=== PATIENT | male | born 2000 | race Two or more races ===

== ENCOUNTER 2019-05-04 19:37 | Emergency (ER) | payer SELFPAY ==
[2019-05-04] MEDS ORDERED: Lidocaine 1% with EPINEPHrine 1:100,000 20 ML MDV INJECT ONE (20:33)
[2019-05-04] MEDS ORDERED: Diphtheria,Pertussis(Acell),Tetanus Vaccine 0.5 ML SDV IM ONE (20:33)
[2019-05-04] MEDS ORDERED: Bupivacaine 0.5% 10 ML SDV INJECT ONE (20:33)
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
== END 2019-05-04 23:06 | disposition home or self-care (01) ==
LOC: JD.ED 19:37
DX: S81.011A Laceration without foreign body, right knee, initial encounter (principal); S50.311A Abrasion of right elbow, initial encounter; S80.812A Abrasion, left lower leg, initial encounter; S80.811A Abrasion, right lower leg, initial encounter; Z23 Encounter for immunization; V86.56XA Driver of dirt bike or motor/cross bike injured in nontraffic accident, initial encounter
CPT/HCPCS: 12002; 90471; 90715; 99283; J3490; 99282

== ENCOUNTER 2019-05-11 11:13 | Emergency (ER) | payer SELFPAY ==
--- NOTE | 2019-05-11 13:00 | EDM.PDOC ---
ED HPI GENERAL MEDICAL PROBLEM - General Stated Complaint: REMOVE STITCHES Time Seen by Provider: 05/11/19 12:26 Source of Information: Reports: Patient History Limitations: Reports: No Limitations - History of Present Illness INITIAL COMMENTS - FREE TEXT/NARRATIVE: Patient is a 18-year-old male who presents to the ED to have sutures removed from his right knee. Patient fell causing a laceration. Laceration was closed here in the ED approximate 7 days ago. He was instructed to return back to ED to have these removed. No pain associated to the site. No signs of infection. He offers no additional complaints. - Related Data Allergies Allergy/AdvReac Type Severity Reaction Status Date / Time No Known Allergies Allergy Verified 05/11/19 13:17 Home Meds: Home Meds . [No Known Home Meds] 05/04/19 [History] Past Medical History - Past Health History Medical/Surgical History: Denies Medical/Surgical History Social & Family History - Caffeine Use Caffeine Use: Reports: Coffee, Soda - Living Situation & Occupation Living situation: Reports: Single, Alone Occupation: Employed ([employer]) ED ROS GENERAL - Review of Systems Review Of Systems: ROS reveals no pertinent complaints other than HPI. ED EXAM, SKIN/RASH Exam: See Below Exam Limited By: No Limitations General Appearance: Alert, WD/WN, No Apparent Distress Ears: Hearing Grossly Normal Nose: Normal Inspection Throat/Mouth: Normal Voice, No Airway Compromise Head: Atraumatic, Normocephalic Neck: Normal Inspection, Supple Respiratory/Chest: No Respiratory Distress, No Accessory Muscle Use Cardiovascular: Normal Peripheral Pulses, Regular Rate, Rhythm Peripheral Pulses: 2+: Radial (R) Extremities: Normal Range of Motion, Non-Tender, Other (Approximately 2 inch laceration to the right knee with well approximated wound edges and suture in place. The suture is a running suture. Scab present. No signs of infection including: Increased redness, swelling, or warmth. No drainage noted.) Neurological: Alert, Oriented, CN II-XII Intact, Normal Cognition, No Motor/ Sensory Deficits Psychiatric: Normal Affect, Normal Mood Skin: Warm, Dry, Normal Color Course - Vital Signs Last Recorded V/S: Last Vital Signs Temp 98.6 F 05/11/19 13:13 Pulse 78 05/11/19 13:13 Resp 16 05/11/19 13:13 BP 122/80 05/11/19 13:13 Pulse Ox 100 05/11/19 13:13 - Re-Assessments/Exams Free Text/Narrative Re-Assessment/Exam: Patient has a approximate 2 inch laceration to the right knee with a running suture in place. Scab present with no redness, swelling, or drainage present. 7 days post injury. I believe additional 3 days would be appropriate for suture removal. He'll return back to the ED for further exam to have the sutures removed. 05/11/19 14:29 Prior to discharge patient's sutures were removed by nursing staff accidentally. The laceration remained intact with no separation. Steri- Strips were reapplied. Verbal instructions provided to patient. Unfortunately instructions were already printed and were not to be able to be changed in timely manner. Departure - Departure Time of Disposition: 13:00 Disposition: Home, Self-Care 01 Clinical Impression: Laceration of right knee Qualifiers: Encounter type: sequela Qualified Code(s): S81.011S - Laceration without foreign body, right knee, sequela - Discharge Information Instructions: Stitches, [place], or Adhesive Wound Closure Referrals: PCP,None [Primary Care Provider] - Forms: ED Department Discharge Additional Instructions: Sutures will remain in place for the next 3 days. Return to the ED for suture removal. Continue to cleanse the area twice daily with soap and water, pat dry. Monitor for signs of infection. If so return back to the ED.
== END 2019-05-11 13:25 | disposition home or self-care (01) ==
LOC: JD.ED 11:13
DX: S81.011D Laceration without foreign body, right knee, subsequent encounter (principal); X58.XXXD Exposure to other specified factors, subsequent encounter